=== PATIENT | male | born 1995 | race African-American/Black ===

== ENCOUNTER 2019-03-16 18:53 | Emergency (ER) | payer MEDICAID ==
[~2019-03-16] VITALS: Ht 172.7 cm; Wt 68.0 kg
[2019-03-16 19:01] VITALS: BP_SYST 125
--- NOTE | 2019-03-16 19:07 | NUR ---
Patient to ER bed 8 to gown for evaluation. Side rails up. Report given to Elin VELASQUEZ.
--- NOTE | 2019-03-16 19:15 | NUR ---
Patient brought in complaing of right lateral foot pain x 2 weeks with weight bearing. Patient reports he was skateboarding and rolled his ankle. Swelling noted to right lateral foot. Patient states that he can bear weight intermittently. Pain 6/10. No other complaints/injuries per patient or as noted. Will continue to monitor.
--- NOTE | 2019-03-16 21:04 | NUR ---
ER Dr. Torre at bedside examining patient.
[2019-03-16] MEDS ORDERED: IBUPROFEN 600 MG TABLET PO ONE (21:15)
--- NOTE | 2019-03-16 21:23 | NUR ---
Posterior Short leg splint applied to Left leg. Pedal pulse noted. Capillary refill <3 seconds. Patient has ability to move non-splinted digits. Has sensation present to affected site. Skin color within normal limits. Applied for pain management control.
[2019-03-16 21:31] VITALS: BP_SYST 118
--- NOTE | 2019-03-16 21:31 | NUR ---
Patient given written and verbal discharge instructions and verbalizes understanding. ER MD discussed with patient the results and treatment provided. Patient in stable condition. ID arm band removed. Rx of Naprosyn given. Patient educated on pain management and to follow up with PMD or orthopedic surgeon in 3 days . Pain Scale 0/10 Opportunity for questions provided and answered. Medication side effect fact sheet provided.
== END 2019-03-16 21:31 | disposition home or self-care (01) ==
LOC: SED 18:53
DX: M79.672 Pain in left foot (principal); X50.9XXA Other and unspecified overexertion or strenuous movements or postures, initial encounter; Y93.51 Activity, roller skating (inline) and skateboarding; Y92.89 Other specified places as the place of occurrence of the external cause; Y99.8 Other external cause status
CPT/HCPCS: 99283